=== PATIENT | female | born 1970 | race Caucasian/White ===

== ENCOUNTER → 2017-03-21 | Day surgery (SDC) | payer BC ==
--- NOTE | 2017-03-25 12:53 | PATH ---
Surgical Pathology Report Patient Name: BANG BURKS [facility]. Rec. #: [id number] /Age/Gender: 1970 (Age: 46) / F Account: [id number] Location: [facility] Taken: 03/21/2017 Received: 03/21/2017 Reported: 03/25/2017 Physicians: Alonso Overton M.D. 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 Electronically Signed Lorenza Toribio M.D. Gross Description Received in formalin labeled "right breast mass stereotactic biopsy," is a 2.3 x 2.0 x 0.3 cm aggregate of multiple siddiqui-yellow, irregular to cylindrical portions of fibroadipose tissue. The formalin is filtered and the specimen is entirely submitted in one cassette. Time to formalin fixation: 5 minutes Total formalin fixation time: Approximately 7 hours. /03/21/2017 saudi03/21/2017
== END | disposition home or self-care (01) ==
LOC: FMAMMOTONE 09:23
PROVIDERS: ATTEND Family Medicine
PROC: 0HBT3ZX Excision of Right Breast, Percutaneous Approach, Diagnostic (ICD-10-PCS; principal; 2017-03-21)
DX: N60.31 Fibrosclerosis of right breast (principal)
CPT/HCPCS: 19081; 88305-TC; A4648

== ENCOUNTER → 2017-05-22 | Day surgery (SDC) | payer BC ==
--- NOTE | 2017-05-23 16:39 | PATH ---
Cytology Non-Gynecological Report Patient Name: BANG BURKS [facility]. Rec. #: [id number] /Age/Gender: 1970 (Age: 46) / F Account: [id number] Location: RADIOLOGY Taken: 05/22/2017 Received: 05/22/2017 Reported: 05/23/2017 Physicians: Alonso Guo M.D. Specimen(s) Received RIGHT THYROID FNA Clinical History Right thyroid nodule, 2.35 x 1.32 x 1.51 cm Final Diagnosis THYROID GLAND, RIGHT LOBE, US GUIDED FINE NEEDLE ASPIRATION BIOPSY: SATISFACTORY FOR EVALUATION DUE TO THE PRESENCE OF COLLOID. NO FOLLICULAR EPITHELIAL CELLS SEEN; COLLOID AND MACROPHAGES PRESENT, MOST SUGGESTIVE OF COLLOID CYST (SEE COMMENT). Comment: The smears and the cell block show colloid and macrophages. No follicular epithelial cells are seen. 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 Imaging correlations and followup are suggested. Electronically Signed Ramone Wu M.D. Gross Description Received are 2 air dried smears, 2 smears in 95% alcohol, and 20 cc of bloody fluid in formalin. 2 diff-quik stained slides, 2 Pap stained slides and one cell block are made.
== END | disposition home or self-care (01) ==
LOC: JRADIR 08:56
PROVIDERS: ATTEND Family Medicine
PROC: 0G9H3ZX Drainage of Right Thyroid Gland Lobe, Percutaneous Approach, Diagnostic (ICD-10-PCS; principal; 2017-05-22)
PROC: BG44ZZZ Ultrasonography of Thyroid Gland (ICD-10-PCS; 2017-05-22)
DX: E04.1 Nontoxic single thyroid nodule (principal)
CPT/HCPCS: 76942; 88173; 88305-TC